=== PATIENT | male | born 1975 | race Caucasian/White ===

== ENCOUNTER 2018-01-25 17:19 | Emergency (ER) | END 2018-01-25 21:10 | disposition home or self-care (01) ==

== ENCOUNTER 2018-02-02 08:35 | Emergency (ER) | END 2018-02-02 10:17 | disposition home or self-care (01) ==

== ENCOUNTER 2019-04-19 08:03 | Emergency (ER) | payer BC ==
[~2019-04-19] VITALS: Ht 175.3 cm; Wt 78.0 kg
[~2019-04-19 08:03] MED LIST: HYDR-3720 PO; HYDR-842 PO; IBUP800T48 PO; LISI2.5T59 PO; METO10TA92 PO; OMEP20CA16 PO
[2019-04-19 08:05] VITALS: Ht 175.3 cm; Wt 78.0 kg
--- NOTE | 2019-04-19 08:49 | ERD ---
ER Documentation Chief Complaint Chief Complaint pt is bib self with c/o right sided facial swelling since 3 am HPI Patient is a 43 years old male with past medical history of hypertension presenting to the clinic for sudden onset of swelling on right side of face since 3 AM. Patient denies any fever, chills, night sweats, pain, shortness of breath, difficulty breathing, cough, sputum production, chest pain. Patient denies taking any yiln-mgg-yefkstn medication and reports the swelling has not improved. Patient reports the swelling is a exclusive to right buccal area. Patient denies all other review of systems stating that he feels well otherwise. Patient denies history of allergy and denies being bitten or trying any new food products recently. ROS All systems reviewed and are negative except as per history of present illness. Medications Home Meds Active Scripts Diphenhydramine Hcl (Benadryl Allergy) 25 Mg Tablet, 25 MG PO TID for 7 Days, #21 TAB Prov:LAURA SOTELO PA-C 04/19/19 Methylprednisolone* (Medrol* DOSE PACK) 4 Mg/Dose-Pack Tab.ds.pk, 4 MG PO . DIRECTED for 5 Days, PACKET Prov:LAURA SOTELO PA-C 04/19/19 Ibuprofen* (Motrin*) 800 Mg Tab, 800 MG PO Q6, #30 TAB Prov:MAHAMED DEL RIO PA-C 01/25/18 Hydrocodone Bit-Acetaminophen* (Mesa*) 7.5-325 Tablet, 1 TAB PO Q4H PRN for PAIN, #20 TAB Prov:SEBASTIAN PORTILLO DO 03/20/16 Metoclopramide* (Reglan*) 10 Mg Tablet, 10 MG PO Q6 PRN for NAUSEA AND/OR VOMITING, #18 TAB Prov:RIZWANA PORTILLOSTFAMILIA Kolb DO 03/20/16 Reported Medications Hydroxyzine Hcl* (Atarax*) 25 Mg Tab, 25 MG PO BID PRN for ITCHING, #30 01/22/16 Omeprazole* (Omeprazole*) 20 Mg Capsule.dr, 20 MG PO DAILY, #30 CAP 01/22/16 Lisinopril* (Lisinopril*) 2.5 Mg Tablet, 2.5 MG PO DAILY, #30 TAB 01/22/16 Allergies Allergies: Coded Allergies: No Known Allergy (Unverified , 01/22/16) PMhx/Soc Medical and Surgical Hx: pt denies Surgical Hx History of Surgery: No Anesthesia Reaction: No Hx Neurological Disorder: No Hx Respiratory Disorders: No Hx Cardiac Disorders: Yes (htn) Hx Psychiatric Problems: No Hx Miscellaneous Medical Probl: Yes (H. PYLORI VS. CROHNS VS. GASTRITIS ) Hx Alcohol Use: No Hx Substance Use: No Hx Tobacco Use: Yes Smoking Status: Former smoker FmHx Family History: No diabetes, No coronary disease, No other Physical Exam Vitals Vital Signs Date Temp Pulse Resp B/P (MAP) Pulse Ox O2 O2 Flow FiO2 Time Delivery Rate 04/19/19 89 17 168/101 95 Room Air 10:59 (123) 04/19/19 98.3 95 18 150/99 98 08:05 (116) Physical Exam Const: No acute distress Head: Atraumatic Eyes: Normal Conjunctiva ENT: Normal External Ears, Nose and Mouth. Right facial swelling most prominently on right buccal mucosa. No tongue edema, no uvular deviation, erythema, drainage, lesion noted in oropharyngeal exam. Neck: Full range of motion. No meningismus. Resp: Clear to auscultation bilaterally Cardio: Regular rate and rhythm, no murmurs Neur: Awake and alert Psych: Normal Mood and Affect Result Diagram: 04/19/19 0846 Results 24 hrs Laboratory Tests Test 04/19/19 08:46 White Blood Count 9.0 10^3/ul Red Blood Count 4.82 10^6/ul Hemoglobin 14.1 g/dl Hematocrit 39.7 % Mean Corpuscular Volume 82.4 fl Mean Corpuscular Hemoglobin 29.3 pg Mean Corpuscular Hemoglobin Concent 35.5 g/dl Red Cell Distribution Width 12.7 % Platelet Count 219 10^3/UL Mean Platelet Volume 11.1 fl Immature Granulocytes % 0.700 % Neutrophils % 69.2 % Lymphocytes % 18.4 % Monocytes % 10.2 % Eosinophils % 0.9 % Basophils % 0.6 % Nucleated Red Blood Cells % 0.0 /100WBC Immature Granulocytes # 0.060 10^3/ul Neutrophils # 6.2 10^3/ul Lymphocytes # 1.7 10^3/ul Monocytes # 0.9 10^3/ul Eosinophils # 0.1 10^3/ul Basophils # 0.1 10^3/ul Nucleated Red Blood Cells # 0.0 10^3/ul Current Medications Medications Dose Sig/Estella Start Time Status Last (Trade) Ordered Route PRN Stop Time Admin Dose Reason Admin Sodium 500 ml @ Q1H ONCE 04/19/19 DC 04/19/19 Chloride 500 mls/hr IV 09:00 09:01 04/19/19 09:59 125 mg ONCE ONCE 04/19/19 DC 04/19/19 Methylprednis IV 09:00 09:00 olone Sodium 04/19/19 09:01 Succinate (Solu-Medrol) 50 mg ONCE ONCE 04/19/19 DC 04/19/19 Diphenhydrami IV 09:00 09:00 ne HCl 04/19/19 09:01 (Benadryl) Procedures/MDM Patient was seen and evaluated for facial swelling without complication. CBC is unremarkable. Patient was given 500 mL normal saline IV, Solu-Medrol 125 mg IV, Benadryl 50 mg IV in ED with significant improvement in symptoms. 50% reduction in swelling post treatment in ED. low suspicion for abscess and sepsis. Patient shows no signs of respiratory distress or anaphylactic reaction. Patient is stable and ready for discharge. Follow-up with PCP. Patient will be discharged with Medrol Dosepak and was advised about airway compromise should seek ED evaluation if symptoms persist. Patient was advised to follow-up in 24 to 48 hours for reevaluation for swelling. Departure Diagnosis: Primary Impression: Swelling Condition: Stable Patient Instructions: Peripheral Edema, Unilateral Referrals: [facility] Additional Instructions: Patient advised to return to the ED immediately for new or worsening symptoms. Patient advised to follow up with primary care provider in the next 24-48 hours. Patient verbalized understanding and agrees with treatment plan and course of action. If patient has no primary care they may follow up with [facility] + [facility] [address] [place] [id number] or [facility] [address] [place] [address] or [facility] [address] [place] [address] LAURA SOTELO PA-C Apr 19, 2019 08:49
[2019-04-19] MEDS ORDERED: DIPHENHYDRAMINE 50 MG INJ IV ONE (09:00)
[2019-04-19] MEDS ORDERED: SOD CHLORIDE 0.9% 500 ML IV ONE (09:00)
[2019-04-19] MEDS ORDERED: METHYLPREDNISOLONE 125 MG INJ IV ONE (09:00)
[2019-04-19] MEDS ORDERED: MED4DP PO (09:29)
[2019-04-19] MEDS ORDERED: DIPH25TA68 PO (09:29)
[2019-04-19 10:59] VITALS: BP 168/101; PULSE 89; RESP 17
== END 2019-04-19 11:00 | disposition home or self-care (01) ==
LOC: FTE 08:03
DX: R22.0 Localized swelling, mass and lump, head (principal); I10 Essential (primary) hypertension; Z87.891 Personal history of nicotine dependence
CPT/HCPCS: 85025; 96361; 96374; 96375; 99284; J1200; J2930; J7040